=== PATIENT | female | born 1985 | race Hispanic/Latino ===

== ENCOUNTER 2016-11-22 16:58 | Emergency (ER) | payer OTHER ==
[2016-11-22 17:20] VITALS: TEMP 97.8
[2016-11-22] MEDS ORDERED: Sodium Chloride 0.9% 1,000 ML IV STA (17:48)
--- NOTE | 2016-11-22 17:52 | ED PDOC ---
Arrival/HPI - General Chief Complaint: Back Pain Time Seen by Provider: 11/22/16 17:47 - History of Present Illness Narrative History of Present Illness (Text): 31 y/o F c PMHx anxiety, depression, appendectomy p/w back pain x 2 days. Pain is across lower back, severe at times, constant, radiating to groin, more R sided than L today, associated with nausea yesterday and increased urinary frequency today. She denies fever, chills, chest pain, dyspnea, vomiting, diarrhea, constipation, dysuria, hematuria, vaginal bleeding, trauma. Past Medical History - Cardiac Hx Cardiac Disorders: No - Pulmonary Hx Respiratory Disorders: No - Neurological Hx Neurological Disorder: No - HEENT Hx HEENT Disorder: No - Renal Hx Renal Disorder: No - Endocrine/Metabolic Hx Endocrine Disorders: No - Hematological/Oncological Hx Blood Disorders: No - Integumentary Hx Dermatological Disorder: No - Musculoskeletal/Rheumatological Hx Musculoskeletal Disorders: No - Gastrointestinal Hx Gastrointestinal Disorders: No - Genitourinary/Gynecological Other/Comment: OVARIAN CYST - Psychiatric Hx Anxiety: Yes Hx Substance Use: No - Surgical History Hx Appendectomy: Yes Family/Social History Family/Social History: No Known Family HX Smoking Status: Never Smoked Hx Alcohol Use: Yes Frequency of alcohol use: Socially Hx Substance Use: No Allergies/Home Meds Allergies/Adverse Reactions: Allergies cefaclor [From Ceclor] Allergy (Verified 11/22/16 17:13) SWELLING Home Medications: Home Meds Medication Instructions Recorded Confirmed Ethinyl Estradiol/Drospirenone 1 tab PO DAILY 11/22/16 11/22/16 [Loryna 3 mg-0.02 mg Tablet] FLUoxetine [Prozac] 20 mg PO DAILY 11/22/16 11/22/16 Review of Systems - Physician Review All systems were reviewed & negative as marked: Yes - Review of Systems Constitutional: absent: Fevers Respiratory: absent: SOB Gastrointestinal: absent: Vomiting Physical Exam - Physical Exam Narrative Physical Exam (Text): Constitutional: No acute distress. Head: Normocephalic. Atraumatic. Eyes: PERRL. ENT: Moist mucous membranes. Neck: Supple. Cardiovascular: Regular rate. Chest: No tenderness. Respiratory: Clear to auscultation bilaterally. GI: Soft. Nontender. Nondistended. No rebound or guarding. Back: No CVA tenderness. No midline tenderness. No paraspinal tenderness. Musculoskeletal: No tenderness or swelling of extremities. Skin: No rash in either flank. Neurologic: Alert, no focal deficit. Vital Signs Temp Pulse Resp BP Pulse Ox 11/22/16 17:18 97.8 F 80 16 111/74 97 Medical Decision Making ED Course and Treatment: Patient without reproducible pain. Appears to be in no acute distress. Pain is in back and radiating to groin and now worse on R with increased urinary frequency. Will treat with toradol, zofran, IVF, check CT for stone, check labs and urine, rule out related conditions. Pending labs and CT. Will sign out case to ER night team at change of shift. - RAD Interpretation Radiology Orders: 11/22/16 17:48 ABD & PELVIS IV CONTRAST ONLY [CT] Stat - Medication Orders Current Medication Orders: Discontinued Medications Sodium Chloride (Sodium Chloride 0.9%) 1,000 mls @ 999 mls/hr IV .Q1H1M STA Stop: 11/22/16 18:48 Ketorolac Tromethamine (Toradol) 15 mg IVP STAT STA Stop: 11/22/16 17:49 Ondansetron HCl (Zofran Inj) 8 mg IVP STAT STA Stop: 11/22/16 17:49 Disposition/Present on Arrival - Present on Arrival Any Indicators Present on Arrival: No History of DVT/PE: No History of Uncontrolled Diabetes: No Urinary Catheter: No History of Decub. Ulcer: No History Surgical Site Infection Following: None - Disposition Have Diagnosis and Disposition been Completed?: No Diagnosis: Back pain Disposition Time: 18:54 Condition: STABLE
[2016-11-22] MEDS ORDERED: Iohexol 350 MG/100 ML VIAL ONE (18:57)
[2016-11-22 19:03] LABS: URINE BILIRUBIN NEGATIVE (NEGATIVE); URINE BLOOD NEGATIVE (NEGATIVE); URINE GLUCOSE (UA) NEGATIVE (NEGATIVE); URINE KETONE NEGATIVE (NEGATIVE); URINE LEUKOCYTE ESTERASE NEGATIVE Leu/uL (NEGATIVE); URINE PROTEIN NEGATIVE mg/dL (<30 mg/dL); URINE UROBILINOGEN 0.2 E.U./dL (<1 E.U./dL)
[2016-11-22 19:05] LABS: URINE APPEARANCE CLEAR (CLEAR)
[2016-11-22 19:26] LABS: ADD MANUAL DIFF? NO
[2016-11-22 19:39] LABS: BASO # 0.04 K/mm3 (0.0-2.0); BASO % 0.7 % (0.0-3.0); EOS # 0.1 (0.0-0.7); EOS % 1.4 % (1.5-5.0); GRAN # 2.55 (1.4-6.5); GRAN % 44.5 % (50.0-68.0); HEMATOCRIT 35.5 % (36.0-48.0); LYMPH # 2.6 (1.2-3.4); LYMPH % 45.7 % (22.0-35.0); MEAN CELL VOLUME 87.2 fL (80.0-105.0); MEAN CORPUSCULAR HEMOGLOBIN 30.7 pg (25.0-35.0); MEAN CORPUSCULAR HGB CONC 35.2 g/dl (31.0-37.0); MEAN PLATELET VOLUME 11.9 fl (7.0-11.0); MONO # 0.4 (0.1-0.6); MONO % 7.7 % (1.0-6.0); PLATELET COUNT 208 10^3/uL (120.0-450.0); WHITE BLOOD COUNT 5.7 10^3/ul (4.5-11.0)
[2016-11-22 20:03] LABS: ALKALINE PHOSPHATASE 57 U/L (38-133); ALT/SGPT 33 U/L (7-56); AST/SGOT 24 U/L (15-39); BILIRUBIN,TOTAL 0.5 mg/dL (0.2-1.3); BLOOD UREA NITROGEN 11 mg/dL (7-21); CALCIUM 9.4 mg/dL (8.4-10.5); CARBON DIOXIDE 27 mmol/L (21-33); CHLORIDE 99 mmol/L (98-107); GFR AFRICAN-AMERICAN > 60; GLUCOSE,RANDOM 83 mg/dL (70-110); LIPASE 78 U/L (23-300); POTASSIUM 3.9 mmol/L (3.6-5.0); SODIUM 137 mmol/L (132-148); TOTAL PROTEIN 7.7 g/dL (5.8-8.3)
[2016-11-22] MEDS ORDERED: Morphine 2 mg/ml ISec IVP STA (20:48)
--- NOTE | 2016-11-22 21:15 | ED PDOC ---
Physical Exam Vital Signs Reviewed: Yes Vital Signs Temp Pulse Resp BP Pulse Ox 11/22/16 19:00 75 18 115/71 97 11/22/16 18:55 79 18 113/75 97 11/22/16 17:18 97.8 F 80 16 111/74 97 Temperature: Afebrile Blood Pressure: Normal Pulse: Regular Respiratory Rate: Normal Appearance: Positive for: Well-Appearing, Non-Toxic, Comfortable Pain Distress: None Mental Status: Positive for: Alert and Oriented X 3 Medical Decision Making ED Course and Treatment: 11/22/16 19:00 Case endorsed to me by Dr. Jenkins, pending labs, CT scan, re-evaluation, and final disposition. 11/22/16 21:45 Reviewed radiology, CT Abdomen and Pelvis shows: Moderate fecal retention in the colon consistent with constipation. - Lab Interpretations Lab Results: 11/22/16 19:00 11/22/16 19:00 Lab Results 11/22/16 19:00: Sodium 137, Potassium 3.9, Chloride 99, Carbon Dioxide 27, Anion Gap 15, BUN 11, Creatinine 0.7, Est GFR ( Amer) > 60, Est GFR (Non- Af Amer) > 60, Random Glucose 83, Calcium 9.4, Total Bilirubin 0.5, AST 24, ALT 33, Alkaline Phosphatase 57, Total Protein 7.7, Albumin 3.8, Globulin 3.9, Albumin/Globulin Ratio 1.0 L, Lipase 78 11/22/16 19:00: WBC 5.7, RBC 4.07, Hgb 12.5, Hct 35.5 L, MCV 87.2, MCH 30.7, MCHC 35.2, RDW 12.0, Plt Count 208, MPV 11.9 H, Gran % 44.5 L, Lymph % (Auto) 45.7 H, Stark % (Auto) 7.7 H, Eos % (Auto) 1.4 L, Baso % (Auto) 0.7, Gran # 2.55 , Lymph # 2.6, Stark # 0.4, Eos # 0.1, Baso # 0.04 11/22/16 18:50: Urine HCG, Qual Negative 11/22/16 18:50: Urine Color yellow, Urine Appearance Clear, Urine pH 6.0, Ur Specific [place] 1.010, Urine Protein Negative, Urine Glucose (UA) Negative, Urine Ketones Negative, Urine Blood Negative, Urine Nitrate Negative, Urine Bilirubin Negative, Urine Urobilinogen 0.2, Ur Leukocyte Esterase Negative - RAD Interpretation Narrative RAD Interpretations (Text): CT Abdomen and Pelvis shows: Lower thorax: No acute findings. ABDOMEN: Liver: Unremarkable. No mass. Gallbladder and bile ducts: Unremarkable. No calcified stones. No ductal dilation. Pancreas: Unremarkable. No mass. No ductal dilation. Spleen: Unremarkable. No splenomegaly. Adrenals: Unremarkable. No mass. Kidneys and ureters: Unremarkable. No solid mass. No hydronephrosis. Stomach and bowel: Moderate fecal retention in the colon consistent with constipation. Appendix: Appendectomy. PELVIS: Bladder: Unremarkable. No mass. Reproductive: Unremarkable as visualized. ABDOMEN and PELVIS: Intraperitoneal space: Unremarkable. No free air. No significant fluid collection. Bones/joints: No acute fracture. No dislocation. Soft tissues: Unremarkable. Vasculature: Unremarkable. No abdominal aortic aneurysm. Lymph nodes: Unremarkable. No enlarged lymph nodes. IMPRESSION: Moderate fecal retention in the colon consistent with constipation. Radiology Orders: 11/22/16 17:48 ABD & PELVIS IV CONTRAST ONLY [CT] Stat 11/22/16 20:58 TRANSVAGINAL [US] Stat [employer] Supervisor: Radiologist - Medication Orders Current Medication Orders: Discontinued Medications Sodium Chloride (Sodium Chloride 0.9%) 1,000 mls @ 999 mls/hr IV .Q1H1M STA Stop: 11/22/16 18:48 Last Admin: 11/22/16 19:07 Dose: 999 mls/hr Iohexol (Omnipaque 350 100 Ml) Confirm Administered Dose 350 mg .ROUTE .STK-MED ONE Stop: 11/22/16 18:58 Ketorolac Tromethamine (Toradol) 15 mg IVP STAT STA Stop: 11/22/16 17:49 Last Admin: 11/22/16 19:08 Dose: 15 mg Morphine Sulfate (Morphine) 2 mg IVP STAT STA Stop: 11/22/16 20:49 Last Admin: 11/22/16 21:04 Dose: 2 mg Ondansetron HCl (Zofran Inj) 8 mg IVP STAT STA Stop: 11/22/16 17:49 Last Admin: 11/22/16 19:08 Dose: 8 mg Disposition/Present on Arrival - Present on Arrival Any Indicators Present on Arrival: No History of DVT/PE: No History of Uncontrolled Diabetes: No Urinary Catheter: No History of Decub. Ulcer: No History Surgical Site Infection Following: None - Disposition Have Diagnosis and Disposition been Completed?: Yes Diagnosis: Back pain, Constipation Disposition: HOME/ ROUTINE Disposition Time: 22:20 Condition: STABLE Discharge Instructions (ExitCare): Constipation (ED), Back Pain (ED) Referrals: PCP,NO [Primary Care Provider] - Follow up with primary
[2016-11-22 22:15] VITALS: BP 111/72; PULSE 73; RESP 17; O2SAT 99
--- NOTE | 2016-11-23 07:53 | CT ---
PROCEDURE: CT Abdomen and Pelvis with contrast HISTORY: back pain radiating to groin, worse on R COMPARISON: None available TECHNIQUE: Contrast dose: 100 cc Omnipaque 350 Radiation dose: Total exam DLP = 344.96 mGy-cm. This CT exam was performed using one or more of the following dose reduction techniques: Automated exposure control, adjustment of the mA and/or kV according to patient size, and/or use of iterative reconstruction technique. FINDINGS: LOWER THORAX: No visible consolidation, pleural effusion, or pneumothorax. LIVER: 7 mm right posterior hepatic lobe hypodensity, too small to characterize ; statistically cyst or hemangioma. GALLBLADDER AND BILE DUCTS: Unremarkable. PANCREAS: Unremarkable. SPLEEN: Unremarkable. ADRENALS: Unremarkable. KIDNEYS AND URETERS: The kidneys enhance symmetrically. No hydronephrosis or obstructing calculus identified. VASCULATURE: No aortic aneurysm. BOWEL: Stomach is nondistended. Lack of oral contrast limits evaluation for bowel pathology. Bowel loops appear within normal limits of caliber without evidence of obstruction. Moderate constipation. APPENDIX: No secondary signs of acute appendicitis. PERITONEUM: No significant free fluid. No definite free air. LYMPH NODES: No bulky adenopathy evident. BLADDER: Unremarkable. REPRODUCTIVE: The uterus is present. BONES: No acute osseous abnormality is detected. Nonspecific left ileum peripherally sclerotic focus. OTHER FINDINGS: None. IMPRESSION: Moderate constipation. Preliminary impression was provided by virtual radi[employer].
--- NOTE | 2016-11-23 08:53 | US ---
HISTORY: ABD PAIN COMPARISON: No prior ultrasound available for direct comparison. TECHNIQUE: Transvaginal pelvic ultrasound. FINDINGS: UTERUS: Measures 7.1 x 2.7 x 4.0 cm. Anteverted. ENDOMETRIUM: Measures 2 mm in diameter. CERVIX: No cervical abnormality identified. RIGHT OVARY: Measures 2.2 x 1.2 x 1.8 cm. Blood flow is demonstrated. LEFT OVARY: Measures 2.0 x 1.0 x 2.4 cm. Blood flow is demonstrated. FREE FLUID: No significant free fluid noted. OTHER FINDINGS: None. IMPRESSION: Unremarkable pelvic ultrasound as above. Preliminary impression was provided by virtual radi[facility].
== END 2016-11-22 22:18 | disposition home or self-care (01) ==
LOC: ED 16:58
DX: M54.9 Dorsalgia, unspecified (principal); K59.00 Constipation, unspecified
CPT/HCPCS: 74177; 76830; 80053; 81003; 83690; 84703; 85025; 87086; 96374; 96375; 99284; J1885; J2270; J2405; J7040; Q9967